=== PATIENT | female | born 1980 ===

== ENCOUNTER 2023-05-06 05:00 | Day surgery (SDC) | payer OTHER ==
[2023-04-28 12:25] VITALS: BMI 25.9
[2023-05-06] MEDS ORDERED: ONDANSETRON 4 MG/2 ML VIAL ONE (12:48)
[2023-05-06] MEDS ORDERED: MIDAZOLAM HCL 2 MG/2 ML SINGLE DOSE VIAL ONE (12:48)
[2023-05-06] MEDS ORDERED: LIDOCAINE HCL/PF 2% SDV 5ML VIAL ONE (12:48)
[2023-05-06] MEDS ORDERED: FENTANYL CITRATE/PF 50 MCG/ML VIAL ONE ×2 (12:48→14:13)
[2023-05-06] MEDS ORDERED: KETOROLAC TROMETHAMINE 30 MG/1 ML VIAL ONE (12:48)
[2023-05-06] MEDS ORDERED: DEXAMETHASONE SOD PHOSPHATE 4 MG/1 ML VIAL ONE (12:48)
[2023-05-06] MEDS ORDERED: PROPOFOL 20 ML ONE (12:48)
[2023-05-06] MEDS ORDERED: SEVOFLURANE 250 ML BTL ONE (13:19)
[2023-05-06] MEDS ORDERED: oxyCODONE HCL 5 MG TABLET PO PRN (13:51)
[2023-05-06] MEDS ORDERED: ONDANSETRON 4 MG/2 ML VIAL IVPUSH PRN (13:51)
[2023-05-06] MEDS ORDERED: IBUPROFEN 600 MG TABLET (FP) PO PRN (13:57)
[2023-05-06] MEDS ORDERED: ACETAMINOPHEN INJECTION 100 ML IVPB ONE (14:14)
[2023-05-06] MEDS: ACETAMINOPHEN 1000 MG/100 ML BAG IVPB PRN (14:17)
[2023-05-06] MEDS: LACTATED RINGERS SOLUTION 1,000 ML IV SCH (15:18)
[2023-05-06 16:07] VITALS: RESP 18
[2023-05-06 16:41] VITALS: PULSE 72; TEMP 98
[2023-05-06 16:50] VITALS: BP 121/79
[2023-05-07] MEDS ORDERED: FERROUS GLUCONATE 324 MG TAB (FP) PO SCH (10:00)
== END 2023-05-06 16:25 | disposition home or self-care (01) ==
LOC: JASU-SURG 05:00
PROVIDERS: ATTEND Obstetrics & Gynecology Obstetrics
PROC: 0UB98ZZ Excision of Uterus, Via Natural or Artificial Opening Endoscopic (ICD-10-PCS; principal; 2023-05-06 11:30)
DX: N92.0 Excessive and frequent menstruation with regular cycle (principal); N84.0 Polyp of corpus uteri
CPT/HCPCS: 88305-TC; 88341-TC; 88342-TC; 94760; J0131